=== PATIENT | male | born 1975 | race Two or more races ===

== ENCOUNTER 2017-10-06 08:53 | Emergency (ER) | payer SELFPAY ==
[~2017-10-06] VITALS: Ht 167.6 cm; Wt 98.4 kg
[2017-10-06] MEDS ORDERED: ONDANSETRON PF 4 MG/2 ML VIAL. IV ONE (09:30)
[2017-10-06] MEDS ORDERED: KETOROLAC 30 MG/ML INJ. IV ONE (09:30)
--- NOTE | 2017-10-06 09:31 | PHYS DOC ---
Past Medical History Past Medical History: GERD, Hypertension, Kidney Stone, Other Additional Past Medical Histor: muscle spasms Past Surgical History: Other Additional Past Surgical Histo: lithotripsy Alcohol Use: None Drug Use: None Adult General Chief Complaint Chief Complaint: BACK PAIN - NO INJURY HPI HPI Patient is a 42 year old male with a history of kidney stones presents to the ED complaining of right flank pain x 2 days. States the pain is sharp. Rates at worst as 9/10. Radiates from right flank to right lower abdomen. History of lithotripsy and kidney stent placement. Denies nausea/vomiting, diarrhea, blood in stool, chest pain, shortness of breath, dysuria, hematuria, fever or weakness. Review of Systems Review of Systems Constitutional: Denies fever or chills [] Eyes: Denies change in visual acuity, redness, or eye pain [] HENT: Denies nasal congestion or sore throat [] Respiratory: Denies cough or shortness of breath [] Cardiovascular: No additional information not addressed in HPI [] GI: Complains of abdominal pain. Denies nausea, vomiting, bloody stools or diarrhea [] : Denies dysuria or hematuria [] Musculoskeletal: Denies back pain or joint pain [] Integument: Denies rash or skin lesions [] Neurologic: Denies headache, focal weakness or sensory changes [] Endocrine: Denies polyuria or polydipsia [] All other systems were reviewed and found to be within normal limits, except as documented in this note. Current Medications Current Medications Current Medications Medications (Trade) Dose Ordered Sig/Zully Start Time Stop Time Status Last Admin Dose Admin Ketorolac Tromethamine (Toradol) 30 mg 1X ONCE 10/06/17 09:30 10/06/17 09:31 DC 10/06/17 10:14 30 MG Morphine Sulfate 2 mg 1X ONCE 10/06/17 09:45 10/06/17 09:46 DC Ondansetron HCl (Zofran) 4 mg 1X ONCE 10/06/17 09:30 10/06/17 09:31 DC 10/06/17 10:13 4 MG Allergies Allergies Allergies Coded Allergies Type Severity Reaction Last Updated Verified No Known Drug Allergies 11/05/14 No Physical Exam Physical Exam Constitutional: Well developed, well nourished, no acute distress, non-toxic appearance. [] HENT: Normocephalic, atraumatic, bilateral external ears normal, oropharynx moist, no oral exudates, nose normal. [] Eyes: PERRLA, EOMI, conjunctiva normal, no discharge. [] Neck: Normal range of motion, no tenderness, supple, no stridor. [] Cardiovascular:Heart rate regular rhythm, no murmur [] Lungs & Thorax: Bilateral breath sounds clear to auscultation [] Abdomen: Bowel sounds normal, soft, MILD RIGHT LOWER ABDOMINAL TENDERNESS, no masses, no pulsatile masses. [] Skin: Warm, dry, no erythema, no rash. [] Back: No tenderness, MILD RIGHT SIDED CVA TENDERNESS. [] Extremities: No tenderness, no cyanosis, no clubbing, ROM intact, no edema. [] Neurologic: Alert and oriented X 3, normal motor function, normal sensory function, no focal deficits noted. [] Psychologic: Affect normal, judgement normal, mood normal. [] Current Patient Data Vital Signs Vital Signs Date Time Temp Pulse Resp B/P (MAP) Pulse Ox O2 Delivery O2 Flow Rate FiO2 10/06/17 10:52 86 18 150/88 (108) 96 10/06/17 10:00 99.4 99.4 10/06/17 09:20 Room Air Lab Values Laboratory Tests Test 10/06/17 09:50 10/06/17 10:04 Urine Collection Type Unknown Urine Color Yellow Urine Clarity Clear Urine pH 6.5 Urine Specific Walls <=1.005 Urine Protein Negative mg/dL (NEG-TRACE) Urine Glucose (UA) Negative mg/dL (NEG) Urine Ketones (Stick) Negative mg/dL (NEG) Urine Blood Small (NEG) Urine Nitrite Negative (NEG) Urine Bilirubin Negative (NEG) Urine Urobilinogen Dipstick 0.2 mg/dL (0.2 mg/dL) Urine Leukocyte Esterase Negative (NEG) Urine RBC Rare /HPF (0-2) Urine WBC 0 /HPF (0-4) Urine Bacteria 0 /HPF (0-FEW) White Blood Count 14.0 x10^3/uL (4.0-11.0) H Red Blood Count 5.04 x10^6/uL (4.30-5.70) Hemoglobin 16.2 g/dL (13.0-17.5) Hematocrit 48.3 % (39.0-53.0) Mean Corpuscular Volume 96 fL (79-100) Mean Corpuscular Hemoglobin 32 pg (25-35) Mean Corpuscular Hemoglobin Concent 34 g/dL (31-37) Red Cell Distribution Width 13.3 % (11.5-14.5) Platelet Count 252 x10^3/uL (140-400) Sodium Level 139 mmol/L (136-145) Potassium Level 4.2 mmol/L (3.5-5.1) Chloride Level 102 mmol/L (98-107) Carbon Dioxide Level 26 mmol/L (21-32) Anion Gap 11 (6-14) Blood Urea Nitrogen 11 mg/dL (8-26) Creatinine 1.1 mg/dL (0.7-1.3) Estimated GFR (Cockcroft-Gault) 73.1 BUN/Creatinine Ratio 10 (6-20) Glucose Level 140 mg/dL (70-99) H Calcium Level 9.1 mg/dL (8.5-10.1) Total Bilirubin 0.5 mg/dL (0.2-1.0) Aspartate Amino Transferase (AST) 20 U/L (15-37) Alanine Aminotransferase (ALT) 51 U/L (16-63) Alkaline Phosphatase 124 U/L (46-116) H Total Protein 7.3 g/dL (6.4-8.2) Albumin 4.1 g/dL (3.4-5.0) Albumin/Globulin Ratio 1.3 (1.0-1.7) Lipase 127 U/L (73-393) Laboratory Tests 10/06/17 10:04 Laboratory Tests 10/06/17 10:04 EKG EKG [] Radiology/Procedures Radiology/Procedures PROCEDURE: CT ABDOMEN PELVIS WO CONTRAST Indication: Right flank pain. Axial imaging through the abdomen and pelvis was performed without contrast. No prior studies are available for comparison. There is some scarring or atelectasis in the right middle lobe. The liver demonstrates diffuse low density consistent with hepatic steatosis. No discrete liver mass is identified. The gallbladder is unremarkable. Pancreas and spleen are unremarkable. No adrenal mass is identified. Left kidney contains a nonobstructing calculus in the lower pole measuring 6 mm. There is a 16 mm calculus located in the mid right ureter producing severe hydroureteronephrosis. Mild right perinephric inflammatory stranding is present. The ureter distal to this calculus is unremarkable. The bladder is unremarkable. There is no free fluid. The small and large bowel loops are normal caliber. There is sigmoid diverticulosis but no evidence of acute diverticulitis. Impression: 1. 16 mm mid right ureteric calculus producing severe hydroureteronephrosis. 2. Nonobstructing left renal calculus. 3. Uncomplicated diverticulosis. 4. Hepatic steatosis. [] Course & Med Decision Making Course & Med Decision Making Pertinent Labs and Imaging studies reviewed. (See chart for details) []Discussed case with attending physician. We do not have urology at [facility]. Patient transferred to [facility] and accepted by Dr. Wes Andre (Urology). requested patient go to the emergency room and Dr. Andre will be waiting in the ED to evaluate him. Patient offered to be transferred in ambulance. Patient refused. Discussed risks. Patient verbalizes understanding. Patient will go by private vehicle to [facility]. Patient's family will drive him. Patient on reexamination after analgesics given is in no acute distress and states he currently has not pain. Vitals stable, no acute distress. Patient safe for Transfer and to go straight to emergency room for urology evaluation. Dragon Disclaimer Dragon Disclaimer This electronic medical record was generated, in whole or in part, using a voice recognition dictation system. Departure Departure Impression: Primary Impression: Kidney stone Disposition: 05 TRANSFER OTHER Condition: STABLE Referrals: JASMEET BELLE (PCP) Additional Instructions: PATIENT WANTS TO GO BY PRIVATE VEHICLE INSTEAD OF TRANSFER. GO DIRECTLY TO [facility] EMERGENCY ROOM ([address] [place] [address]). DR. ANDRE (ACCEPTING PHYSICIAN) WITH UROLOGY WILL MEET HIM THERE TO BE SEEN. KATHLEEN QUINTANA Oct 06, 2017 09:31
[2017-10-06] MEDS ORDERED: MORPHINE SULFATE 4 MG/ML DISP.SYRIN. IV ONE (09:45)
[2017-10-06 10:07] LABS: BILIRUBIN,URINE NEGATIVE (NEG); GLUCOSE,URINE NEGATIVE (NEG); NITRITE,URINE NEGATIVE (NEG); PH,URINE 6.5; PROTEIN,URINE NEGATIVE (NEG-TRACE); UROBILINOGEN,URINE 0.2 mg/dL (0.2 mg/dL)
[2017-10-06 10:16] LABS: HEMATOCRIT 48.3 % (39.0-53.0); HEMOGLOBIN 16.2 g/dL (13.0-17.5); RED BLOOD COUNT 5.04 x10^6/uL (4.30-5.70); RED CELL DISTRIBUTION WIDTH 13.3 % (11.5-14.5)
[2017-10-06 10:21] LABS: BACTERIA,URINE 0 /HPF (0-FEW); RBC,URINE RARE /HPF (0-2); WBC,URINE 0 /HPF (0-4)
[2017-10-06 10:33] LABS: CALCIUM 9.1 mg/dL (8.5-10.1); CREATININE 1.1 mg/dL (0.7-1.3); GFR 73.1; POTASSIUM 4.2 mmol/L (3.5-5.1)
[2017-10-06 10:38] LABS: ALBUMIN 4.1 g/dL (3.4-5.0); ALBUMIN/GLOBULIN RATIO 1.3 (1.0-1.7); TOTAL BILIRUBIN 0.5 mg/dL (0.2-1.0); TOTAL PROTEIN 7.3 g/dL (6.4-8.2)
[2017-10-06 10:52] VITALS: BP 150/88
--- NOTE | 2017-10-06 10:55 | RAD ---
Indication: Right flank pain. Axial imaging through the abdomen and pelvis was performed without contrast. No prior studies are available for comparison. There is some scarring or atelectasis in the right middle lobe. The liver demonstrates diffuse low density consistent with hepatic steatosis. No discrete liver mass is identified. The gallbladder is unremarkable. Pancreas and spleen are unremarkable. No adrenal mass is identified. Left kidney contains a nonobstructing calculus in the lower pole measuring 6 mm. There is a 16 mm calculus located in the mid right ureter producing severe hydroureteronephrosis. Mild right perinephric inflammatory stranding is present. The ureter distal to this calculus is unremarkable. The bladder is unremarkable. There is no free fluid. The small and large bowel loops are normal caliber. There is sigmoid diverticulosis but no evidence of acute diverticulitis. Impression: 1. 16 mm mid right ureteric calculus producing severe hydroureteronephrosis. 2. Nonobstructing left renal calculus. 3. Uncomplicated diverticulosis. 4. Hepatic steatosis. PQRS Compliance Statement: One or more of the following individualized dose reduction techniques were utilized for this examination: 1. Automated exposure control 2. Adjustment of the mA and/or kV according to patient size 3. Use of iterative reconstruction technique
== END 2017-10-06 13:06 | disposition home or self-care (01) ==
LOC: ER 08:53
DX: N20.0 Calculus of kidney (principal); I10 Essential (primary) hypertension; K21.9 Gastro-esophageal reflux disease without esophagitis
CPT/HCPCS: 36415; 74176; 80053; 81001; 83690; 85027; 87086; 96374; 96375; 99285; J1885; J2405

== ENCOUNTER 2017-11-21 11:06 | Emergency (ER) | payer OTHER ==
[2017-11-21] MEDS: KETOROLAC 60 MG/2 ML INJ. IM (12:10)
== END 2017-11-21 12:15 | disposition home or self-care (01) ==
LOC: ER 11:06
DX: M54.32 Sciatica, left side (principal); K21.9 Gastro-esophageal reflux disease without esophagitis; I10 Essential (primary) hypertension; Z87.442 Personal history of urinary calculi
CPT/HCPCS: 73564; 96372; 99284-25; J1885